=== PATIENT | male | born 1955 | race Caucasian/White ===

== ENCOUNTER 2021-07-03 15:57 | Emergency (ER) | payer OTHER ==
[~2021-07-03] VITALS: Ht 170.2 cm; Wt 61.2 kg
--- NOTE | 2021-07-03 16:14 | NUR ---
Pt taken for Head CT by tech via wheelchair. Pt in no acute distress at time of transport.
[2021-07-03 16:20] LABS: HEMATOCRIT 44.5 % (36.7-47.1); MEAN CORPUSCULAR HEMOGLOBIN 29.5 uug (23.8-33.4); MEAN CORPUSCULAR VOLUME 87.7 fL (73.0-96.2); PLATELET COUNT (AUTO) 296 K/uL (152-348)
[2021-07-03 16:44] LABS: ALANINE AMINOTRANSFERASE 23 U/L (16-63); ALKALINE PHOSPHATASE 87 U/L (50-136); ASPARTATE AMINOTRANSFERASE 19 U/L (15-37); BILIRUBIN,DIRECT 0.1 mg/dL (0.0-0.2); BILIRUBIN,TOTAL 0.3 mg/dL (0.2-1.0); CARBON DIOXIDE 22 mmol/L (21-32); CHLORIDE 99 mmol/L (98-107); CREATININE 1.5 mg/dL (0.6-1.3); GLUCOSE 217 mg/dL (74-106); POTASSIUM 3.4 mmol/L (3.5-5.1); TOTAL PROTEIN, SERUM 7.4 g/dL (6.4-8.2); UREA NITROGEN, BLOOD 13 mg/dL (7-18)
[2021-07-03 16:49] LABS: ETHANOL < 3 MG/DL (0-0)
[2021-07-03] MEDS ORDERED: levETIRAcetam IV 1,000 MG in IV DEXTROSE 5% 100 ML IV ONE (17:00)
[2021-07-03] MEDS ORDERED: KETAMINE HCL 500 MG/10 ML INJ ONE (17:15)
[2021-07-03] MEDS ORDERED: levETIRAcetam 500 MG/5 ML VIAL IV ONE (17:20)
--- NOTE | 2021-07-03 17:37 | NUR ---
NOTE TO [facility] REGARDING END TIME: KEPPRA INFUSION ENDED AT 1737.
[2021-07-03] MEDS ORDERED: IV NS 1000 ML 1,000 ML IV ONE (19:15)
[2021-07-03] MEDS ORDERED: ASPI81TA31 PO (19:23)
--- NOTE | 2021-07-03 21:02 | NUR ---
A/O X3 BRP tolerated well. Denies pain or discomfort.Fluids given. resting in gurney.
[2021-07-03] MEDS ORDERED: LEVE500T9 PO (21:20)
--- NOTE | 2021-07-03 21:22 | NUR ---
AO x3 denies discomfort. requesting discharge.
--- NOTE | 2021-07-03 21:56 | NUR ---
ED MD bedside with patient. LAC#20 angio DC'ed dressing applied dry intact.
[2021-07-03 22:07] VITALS: BP 130/78
== END 2021-07-03 21:55 | disposition home or self-care (01) ==
LOC: ER 16:56
DX: R56.9 Unspecified convulsions (principal); Z79.82 Long term (current) use of aspirin; Z79.899 Other long term (current) drug therapy; R00.0 Tachycardia, unspecified; R73.9 Hyperglycemia, unspecified
CPT/HCPCS: 36415; 70450; 80048; 80076; 80320; 85025; 93005; 96365; 99285; J1953; J7060 ×2; A4663; G0480; J3490